=== PATIENT | female | born 1990 | race Two or more races ===

== ENCOUNTER 2017-10-24 20:51 | Emergency (ER) | payer MEDICAID, OTHER ==
[~2017-10-24] VITALS: Ht 170.2 cm; Wt 69.9 kg
--- NOTE | 2017-10-24 21:27 | Emergency Room Report ---
History of Present Illness General Chief Complaint: Upper Extremity Injury Source: Patient Present Illness HPI Is a 27-year-old female who is right-hand dominant. She presents with left wrist pain. She was running on the treadmill a month ago slipped and fell. As she was falling she hit her left wrist against the metal railing. Complaining of pain over the lateral aspect the wrist since then. Worse with movement. No swelling. No other injury. Pain is 5/10. Allergies: Coded Allergies: No Known Allergies (Unverified , 10/24/17) Patient History Past Medical History: none, see triage record, old chart reviewed Past Surgical History: none Pertinent Family History: none Social History: Denies: smoking Last Menstrual Period: 10/06/17 Now: No Immunizations: UTD Reviewed Nursing Documentation: PMH: Agreed, PSxH: Agreed Nursing Documentation-PMH Past Medical History: No History, Except For Hx Asthma: Yes Review of Systems Eye: Denies: eye pain, blurred vision ENT: Denies: ear pain, nose congestion, throat swelling Respiratory: Denies: cough, shortness of breath Cardiovascular: Denies: chest pain, palpitations Gastrointestinal: Denies: abdominal pain, diarrhea, nausea, vomiting Musculoskeletal: Reports: joint pain, Denies: back pain Skin: Denies: rash Neurological: Denies: headache, numbness Endocrine: Denies: increased thirst, increased urine Hematologic/Lymphatic: Denies: easy bruising All Other Systems: negative except mentioned in HPI Physical Exam Vital Signs Date Time Temp Pulse Resp B/P (MAP) Pulse Ox O2 Delivery O2 Flow Rate FiO2 10/24/17 21:15 98.2 76 16 115/78 99 Room Air 98.2 vitals normal Sp02 EP Interpretation: reviewed, normal General Appearance: well appearing, no apparent distress, alert Head: normocephalic, atraumatic Eyes: bilateral eye PERRL, bilateral eye EOMI ENT: hearing grossly normal, normal pharynx Neck: full range of motion, supple, no meningismus Respiratory: chest non-tender, lungs clear, normal breath sounds Cardiovascular #1: regular rate, rhythm, no murmur Gastrointestinal: normal bowel sounds, non tender, no mass, no organomegaly, no bruit, non-distended Musculoskeletal: back normal, gait/station normal, normal range of motion, tender - Over the distal ulnar. No deformity. Full range of motion. Psychiatric: mood/affect normal Skin: warm/dry Procedures Splinting Splinting : Consent: Verbal Location: Left wrist Pre-Made Type: velcro Splint: volar Pre-Proc Neuro Vasc Exam: normal Post-Proc Neuro Vasc Exam: normal Patient Tolerated: Well Complications: None Medical Decision Making Diagnostic Impression: Primary Impression: Left wrist sprain Qualified Codes: S63.502A - Unspecified sprain of left wrist, initial encounter ER Course Patient presents With a left wrist sprain. No fracture dislocation. We'll discharge home with a splint. Other X-Ray Diagnostic Results Other X-Ray Diagnostic Results : X-Ray ordered: Wrist x-rays, left # of Views/Limited Vs Complete: 3 View Indication: Pain EP Interpretation: Yes Interpretation: no dislocation, no soft tissue swelling, no fractures Impression: No acute disease Electronically Signed by: Alvin Redding MD Last Vital Signs Date Time Temp Pulse Resp B/P (MAP) Pulse Ox O2 Delivery O2 Flow Rate FiO2 10/24/17 21:15 98.2 76 16 115/78 99 Room Air 98.2 Status: improved Disposition: HOME, SELF-CARE Condition: Stable Scripts Ibuprofen* (MOTRIN*) 600 Mg Tablet 600 MG ORAL Q8H Y for For Pain, #30 TAB 0 Refills Prov: ALVIN REDDING M.D. 10/24/17 Patient Instructions: Wrist Sprain Additional Instructions: Followup with your [facility] in 7 days. Return if worse. Wear splint for comfort as needed. ALVIN REDDING M.D. Oct 24, 2017 21:27
[2017-10-24 21:30] VITALS: BP 122/78
[2017-10-24] MEDS ORDERED: IBUPROFEN600 MG ORAL (21:43)
[2017-10-24 21:50] VITALS: BP 122/78
--- NOTE | 2017-10-25 11:22 | Diagnostic Imaging Report ---
Indication: Pain Findings: 3 views of the left wrist were obtained. No acute fractures, malalignment, erosions or periostitis are identified. Soft tissues are unremarkable. Impression: No acute findings.
== END 2017-10-24 21:50 | disposition home or self-care (01) ==
LOC: EMR 21:30
DX: S63.502A Unspecified sprain of left wrist, initial encounter (principal); J45.909 Unspecified asthma, uncomplicated; W01.0XXA Fall on same level from slipping, tripping and stumbling without subsequent striking against object, initial encounter; Y93.A1 Activity, exercise machines primarily for cardiorespiratory conditioning; Y92.9 Unspecified place or not applicable
CPT/HCPCS: 29260; 99283

== ENCOUNTER 2018-09-10 10:46 | Emergency (ER) | payer OTHER ==
[~2018-09-10] VITALS: Ht 170.2 cm; Wt 78.9 kg
[~2018-09-10 10:46] MED LIST: IBUPROFEN600 MG ORAL
[2018-09-10 10:52] VITALS: BP 101/70
[2018-09-10] MEDS ORDERED: NKM (10:54)
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
[2018-09-10 11:29] VITALS: BP 101/70
== END 2018-09-10 11:30 | disposition home or self-care (01) ==
LOC: EMR 11:05
DX: O26.892 Other specified pregnancy related conditions, second trimester (principal); R10.12 Left upper quadrant pain; Z3A.28 28 weeks gestation of pregnancy; V49.40XA Driver injured in collision with unspecified motor vehicles in traffic accident, initial encounter; Y92.411 Interstate highway as the place of occurrence of the external cause
CPT/HCPCS: 99282